=== PATIENT | female | born 1955 | race Caucasian/White ===

== ENCOUNTER 2016-08-30 11:02 | Observation (INO) | payer MEDICARE, OTHER ==
[2016-08-30] MEDS ORDERED: SODIUM CHLORIDE 0.9% 1,000 ML IV STA (11:29)
[2016-08-30 11:39] LABS: Basophils # (A) 0.1 k/uL (0-0.2); Basophils % (A) 1 %; CH 29.9; CHCM 33.6; Eosinophils # (A) 0.1 k/uL (0-0.7); Eosinophils % (A) 2 %; HCT 33.3 % (34.0-46.0); HDW 2.79; Luc % (Auto) 2; Lymphocytes # (A) 0.8 k/uL (1.0-4.8); Lymphocytes % (A) 18 %; MCH 29.6 pg (25.0-35.0); MCHC 33.1 g/dL (31.0-37.0); MCV 89.4 fL (80.0-100.0); Mean Platelet Volume 7.2; Monocytes # (A) 0.3 k/uL (0-1.0); Monocytes % (A) 6 %; Neutrophils # (A) 3.2 k/uL (1.3-7.7); Neutrophils % (A) 71 %; RBC 3.73 m/uL (3.80-5.40); RDW 14.8 % (11.5-15.5); WBC 4.5 k/uL (3.8-10.6); WBC (Perox) 4.04
[2016-08-30 11:53] LABS: ALT 32 U/L (9-52); AST 22 U/L (14-36); Alkaline Phosphatase 111 U/L (38-126); Anion Gap 8 mmol/L; Blood Urea Nitrogen 17 mg/dL (7-17); Calcium 9.2 mg/dL (8.4-10.2); Carbon Dioxide 25 mmol/L (22-30); Chloride 107 mmol/L (98-107); Glucose 91 mg/dL (74-99); Magnesium 1.9 mg/dL (1.6-2.3); Non-African American GFR(MDRD) 51 (>60 ml/min/1.73 sqM); Potassium 4.5 mmol/L (3.5-5.1); Sodium 140 mmol/L (137-145); Total Bilirubin 0.3 mg/dL (0.2-1.3)
--- NOTE | 2016-08-30 11:54 | ED ---
GI Bleed HPI - General Chief complaint: GI Bleed Stated complaint: GI Bleed Time Seen by Provider: 08/30/16 11:28 Source: EMS, RN notes reviewed Mode of arrival: EMS Limitations: altered mental status - History of Present Illness Initial comments: Patient is a 61-year-old female presents to the emergency room for evaluation. Patient has a history of dementia and currently resides at [facility]. Patient' s brother/caregiver is present with patient. Patient's brother states he received a phone call that she had a dime-sized amount of bright red blood in her stools today. Patient has a history of anemia. Patient denies lightheadedness or dizziness. Patient denies chest pain or shortness of breath. Patient denies rectal pain. Patient denies headache or dizziness. Patient has abdominal pain. Patient denies nausea or vomiting. Patient's caregiver states that they are Jehovah witnesses. - Related Data Home Medications Medication Instructions Recorded Confirmed Omeprazole [PriLOSEC] 20 mg PO Q48H 09/04/13 08/30/16 carBAMazepine [Carbatrol] 200 mg PO DAILY@0900 09/04/13 08/30/16 Cholecalciferol [Vitamin D3] 3,000 unit PO DAILY 09/27/15 08/30/16 Lacosamide [Vimpat] 200 mg PO DAILY 09/27/15 08/30/16 Rivastigmine 4.6MG/24Hr Patch 1 patch TRANSDERM DAILY 09/27/15 08/30/16 [Exelon 4.6MG/24Hr Patch] Calcium Carbonate [Tums] 1,000 mg PO Q4H PRN 10/14/15 08/30/16 Cyanocobalamin [Vitamin B-12] 1,000 mcg PO DAILY 10/14/15 08/30/16 Vitamin B Complex 1 cap PO DAILY 10/14/15 08/30/16 carBAMazepine [Carbatrol] 400 mg PO HS 10/14/15 08/30/16 Atorvastatin [Lipitor] 40 mg PO HS 10/30/15 08/30/16 Bismuth Subsalicylate 524 mg PO Q6H PRN 10/30/15 08/30/16 [Pepto-Bismol] Ibuprofen [Motrin] 200 mg PO Q8H PRN 08/30/16 08/30/16 Sennosides-Docusate Sodium 1 tab PO HS 08/30/16 08/30/16 [Senokot-S] Previous Rx's Medication Instructions Recorded Aspirin 81 mg PO DAILY chew 10/17/15 HYDROcodone/APAP 10-325MG [[place] 1 tab PO Q6H PRN #20 tab 10/17/15 10-325] Allergies Allergy/AdvReac Type Severity Reaction Status Date / Time midazolam HCl [From Versed] Allergy Unknown Verified 08/30/16 11:19 phenytoin sodium Allergy Unknown Verified 08/30/16 11:19 [From Dilantin] phenytoin sodium extended Allergy Unknown Verified 08/30/16 11:19 [From Dilantin] strawberry Allergy Rash/Hives Verified 08/30/16 11:19 Review of Systems ROS Statement: Those systems with pertinent positive or pertinent negative responses have been documented in the HPI. ROS Other: All systems not noted in ROS Statement are negative. Past Medical History Past Medical History: CVA/TIA, Dementia, Hyperlipidemia, Hypertension, Seizure Disorder, Skin Disorder Additional Past Medical History / Comment(s): anemia, lymphoma, brain tumor History of Any Multi-Drug Resistant Organisms: None Reported Additional Past Surgical History / Comment(s): brain surgery Past Anesthesia/Blood Transfusion Reactions: No Reported Reaction Past Psychological History: No Psychological Hx Reported Smoking Status: Former smoker Past Alcohol Use History: None Reported Past Drug Use History: None Reported - Past Family History Father Family Medical History: Coronary Artery Disease (CAD) Mother Family Medical History: Coronary Artery Disease (CAD) General Exam - General Exam Comments Initial Comments: Laying in exam room, no acute distress Limitations: altered mental status General appearance: alert, in no apparent distress Head exam: Present: atraumatic, normocephalic, normal inspection Eye exam: Present: normal appearance ENT exam: Present: normal exam Neck exam: Present: normal inspection Respiratory exam: Present: normal lung sounds bilaterally. Absent: respiratory distress Cardiovascular Exam: Present: regular rate, normal rhythm, normal heart sounds GI/Abdominal exam: Present: soft, normal bowel sounds. Absent: distended, tenderness, guarding, rebound, rigid Rectal exam: Present: normal rectal tone, heme (+) stool Extremities exam: Present: normal inspection Back exam: Present: normal inspection Neurological exam: Present: alert, CN II-XII intact Psychiatric exam: Present: normal affect Skin exam: Present: warm, dry, intact, normal color. Absent: rash Course Vital Signs 08/30/16 08/30/16 11:10 13:59 Temperature 97.9 F 97.0 F L Pulse Rate 62 60 Respiratory 18 18 Rate Blood Pressure 112/72 108/72 O2 Sat by Pulse 100 96 Oximetry Medical Decision Making - Medical Decision Making patient is a 61-year-old female presents to the emergency room for evaluation of hematochezia. Hemoglobin is stable. Fecal occult positive. Patient will be admitted for further evaluation of hematochezia. Case discussed with Dr. Hess. Dr. Hess discussed case with Dr. Serrato who agreed to admit patient. - Lab Data Result diagrams: 08/30/16 11:28 08/30/16 11:28 Lab Results 08/30/16 08/30/16 08/30/16 Range/Units 11:28 11:28 11:28 WBC 4.5 (3.8-10.6) k/uL RBC 3.73 L (3.80-5.40) m/uL Hgb 11.0 L (11.4-16.0) gm/dL Hct 33.3 L (34.0-46.0) % MCV 89.4 (80.0-100.0) fL MCH 29.6 (25.0-35.0) pg MCHC 33.1 (31.0-37.0) g/dL RDW 14.8 (11.5-15.5) % Plt Count 255 (150-450) k/uL Neutrophils % 71 % Lymphocytes % 18 % Monocytes % 6 % Eosinophils % 2 % Basophils % 1 % Neutrophils # 3.2 (1.3-7.7) k/uL Lymphocytes # 0.8 L (1.0-4.8) k/uL Monocytes # 0.3 (0-1.0) k/uL Eosinophils # 0.1 (0-0.7) k/uL Basophils # 0.1 (0-0.2) k/uL PT (9.0-12.0) sec INR (<1.2) APTT (22.0-30.0) sec Sodium 140 (137-145) mmol/L Potassium 4.5 (3.5-5.1) mmol/L Chloride 107 (98-107) mmol/L Carbon Dioxide 25 (22-30) mmol/L Anion Gap 8 mmol/L BUN 17 (7-17) mg/dL Creatinine 1.09 H (0.52-1.04) mg/dL Est GFR (MDRD) Af Amer >60 (>60 ml/min/1.73 sqM) Est GFR (MDRD) Non-Af 51 (>60 ml/min/1.73 sqM) Glucose 91 (74-99) mg/dL Calcium 9.2 (8.4-10.2) mg/dL Magnesium 1.9 (1.6-2.3) mg/dL Total Bilirubin 0.3 (0.2-1.3) mg/dL AST 22 (14-36) U/L ALT 32 (9-52) U/L Alkaline Phosphatase 111 (38-126) U/L Total Creatine Kinase 24 L (30-135) U/L CK-MB (CK-2) 0.2 (0.0-2.4) ng/mL CK-MB (CK-2) Rel Index 0.8 Troponin I <0.012 (0.000-0.034) ng/mL Total Protein 11.1 H (6.3-8.2) g/dL Albumin 3.7 (3.5-5.0) g/dL Lipase 396 H (23-300) U/L Stool Occult Blood (Negative) Blood Type Blood Type Confirm Blood Type Recheck Antibody Screen Spec Expiration Date 08/30/16 08/30/16 08/30/16 Range/Units 11:28 11:28 11:45 WBC (3.8-10.6) k/uL RBC (3.80-5.40) m/uL Hgb (11.4-16.0) gm/dL Hct (34.0-46.0) % MCV (80.0-100.0) fL MCH (25.0-35.0) pg MCHC (31.0-37.0) g/dL RDW (11.5-15.5) % Plt Count (150-450) k/uL Neutrophils % % Lymphocytes % % Monocytes % % Eosinophils % % Basophils % % Neutrophils # (1.3-7.7) k/uL Lymphocytes # (1.0-4.8) k/uL Monocytes # (0-1.0) k/uL Eosinophils # (0-0.7) k/uL Basophils # (0-0.2) k/uL PT 11.0 (9.0-12.0) sec INR 1.1 (<1.2) APTT 20.5 L (22.0-30.0) sec Sodium (137-145) mmol/L Potassium (3.5-5.1) mmol/L Chloride (98-107) mmol/L Carbon Dioxide (22-30) mmol/L Anion Gap mmol/L BUN (7-17) mg/dL Creatinine (0.52-1.04) mg/dL Est GFR (MDRD) Af Amer (>60 ml/min/1.73 sqM) Est GFR (MDRD) Non-Af (>60 ml/min/1.73 sqM) Glucose (74-99) mg/dL Calcium (8.4-10.2) mg/dL Magnesium (1.6-2.3) mg/dL Total Bilirubin (0.2-1.3) mg/dL AST (14-36) U/L ALT (9-52) U/L Alkaline Phosphatase (38-126) U/L Total Creatine Kinase (30-135) U/L CK-MB (CK-2) (0.0-2.4) ng/mL CK-MB (CK-2) Rel Index Troponin I (0.000-0.034) ng/mL Total Protein (6.3-8.2) g/dL Albumin (3.5-5.0) g/dL Lipase (23-300) U/L Stool Occult Blood Positive H (Negative) Blood Type AB Positive Blood Type Confirm Blood Type Recheck CABO Indicated Antibody Screen NEGATIVE Spec Expiration Date 09/02/2016232708/30/16 Range/Units 12:20 WBC (3.8-10.6) k/uL RBC (3.80-5.40) m/uL Hgb (11.4-16.0) gm/dL Hct (34.0-46.0) % MCV (80.0-100.0) fL MCH (25.0-35.0) pg MCHC (31.0-37.0) g/dL RDW (11.5-15.5) % Plt Count (150-450) k/uL Neutrophils % % Lymphocytes % % Monocytes % % Eosinophils % % Basophils % % Neutrophils # (1.3-7.7) k/uL Lymphocytes # (1.0-4.8) k/uL Monocytes # (0-1.0) k/uL Eosinophils # (0-0.7) k/uL Basophils # (0-0.2) k/uL PT (9.0-12.0) sec INR (<1.2) APTT (22.0-30.0) sec Sodium (137-145) mmol/L Potassium (3.5-5.1) mmol/L Chloride (98-107) mmol/L Carbon Dioxide (22-30) mmol/L Anion Gap mmol/L BUN (7-17) mg/dL Creatinine (0.52-1.04) mg/dL Est GFR (MDRD) Af Amer (>60 ml/min/1.73 sqM) Est GFR (MDRD) Non-Af (>60 ml/min/1.73 sqM) Glucose (74-99) mg/dL Calcium (8.4-10.2) mg/dL Magnesium (1.6-2.3) mg/dL Total Bilirubin (0.2-1.3) mg/dL AST (14-36) U/L ALT (9-52) U/L Alkaline Phosphatase (38-126) U/L Total Creatine Kinase (30-135) U/L CK-MB (CK-2) (0.0-2.4) ng/mL CK-MB (CK-2) Rel Index Troponin I (0.000-0.034) ng/mL Total Protein (6.3-8.2) g/dL Albumin (3.5-5.0) g/dL Lipase (23-300) U/L Stool Occult Blood (Negative) Blood Type Blood Type Confirm AB Positive Blood Type Recheck Antibody Screen Spec Expiration Date Disposition Clinical Impression: Hematochezia Disposition: ADMITTED IP TO THIS [facility] Condition: Stable Decision Date: 08/30/16
[2016-08-30 11:59] LABS: INR 1.1 (<1.2)
[2016-08-30 12:01] LABS: Total Protein 11.1 g/dL (6.3-8.2)
[2016-08-30 12:03] LABS: Creatine Kinase 24 U/L (30-135)
[2016-08-30 12:05] LABS: Partial Thromboplastin Time 20.5 sec (22.0-30.0)
[2016-08-30 12:16] LABS: Creatine Kinase MB 0.2 ng/mL (0.0-2.4); Troponin I <0.012 ng/mL (0.000-0.034)
[2016-08-30] MEDS ORDERED: ONDANSETRON 4 MG/2 ML VIAL IVP PRN (13:45)
[2016-08-30] MEDS ORDERED: NALOXONE 0.4 MG/ML 1 ML VIAL IV PRN (13:45)
[2016-08-30] MEDS ORDERED: MORPHINE SULFATE 4 MG/ML SYRINGE IV PRN (13:45)
[2016-08-30] MEDS: SODIUM CHLORIDE 0.9% 1,000 ML IV SCH (14:05)
[2016-08-30] MEDS ORDERED: SENNOSIDES-DOCUSATE SODIUM 1 EACH TAB PO PRN (15:46)
[2016-08-30] MEDS ORDERED: BISMUTH SUBSALICYLATE 4,192 MG/240 ML BOTTLE PO PRN (15:46)
[2016-08-30] MEDS ORDERED: HYDROcodone/APAP 10-325MG 1 EACH TAB PO PRN (15:46)
--- NOTE | 2016-08-30 16:10 | P.HPIM ---
History of Present Illness Patient is a 61-year-old female presents to the emergency room for a possible lower GI bleed. Patient has a history of vascular accident with left-sided residual weakness and currently resides at [facility] patient is alert oriented 3 but has history of dementia as per the chart and patient is a Rivastigmine for that. Patient had a dime-sized amount of bright red blood in her stools today, rectal exam was done in ER because of which I didn't repeat the rectal exam here. Although there is no mention about hemorrhoids. Patient denied any abdominal pain denied any hematemesis then nausea vomiting or any fevers. Patient has a history of anemia. Patient denies lightheadedness or dizziness. Patient denies chest pain or shortness of breath. Patient denies rectal pain. Patient denies headache or dizziness. Review of Systems REVIEW OF SYSTEMS: CONSTITUTIONAL: No fever, no malaise, no fatigue. HEENT: No recent visual problems or hearing problems. Denied any sore throat. CARDIOVASCULAR: No chest pain, orthopnea, PND, no palpitations, no syncope. PULMONARY: No shortness of breath, no cough, no hemoptysis. GASTROINTESTINAL: No diarrhea, no nausea, no vomiting, no abdominal pain. Normoactive bowel sounds. NEUROLOGICAL: No headaches, no weakness, no numbness. HEMATOLOGICAL: Denies any bleeding or petechiae. GENITOURINARY: Denies any burning micturition, frequency, or urgency. MUSCULOSKELETAL/RHEUMATOLOGICAL: Denies any joint pain, swelling, or any muscle pain. ENDOCRINE: Denies any polyuria or polydipsia. The rest of the 14-point review of systems is negative. Past Medical History Past Medical History: CVA/TIA, Dementia, Hyperlipidemia, Hypertension, Seizure Disorder, Skin Disorder Additional Past Medical History / Comment(s): Nonhodgkins lymphoma stage IV, brain tumor with surgery/radiation/chemo, last seizure 2000, CVA with L sided weakness, slight dysphagia, pt needs to take carbetrol-if tegretol is substituted she gets extremely lethargic, hypogamaglobulinemia, normocytic anemia. History of Any Multi-Drug Resistant Organisms: None Reported Additional Past Surgical History / Comment(s): brain surgery, SABINE Past Anesthesia/Blood Transfusion Reactions: No Reported Reaction Smoking Status: Former smoker - Past Family History Father Family Medical History: Coronary Artery Disease (CAD) Mother Family Medical History: Coronary Artery Disease (CAD) Medications and Allergies Home Medications Medication Instructions Recorded Confirmed Type Omeprazole [PriLOSEC] 20 mg PO Q48H 09/04/13 08/30/16 History carBAMazepine [Carbatrol] 200 mg PO DAILY@0900 09/04/13 08/30/16 History Cholecalciferol [Vitamin D3] 3,000 unit PO DAILY 09/27/15 08/30/16 History Lacosamide [Vimpat] 200 mg PO DAILY 09/27/15 08/30/16 History Rivastigmine 4.6MG/24Hr Patch 1 patch TRANSDERM DAILY 09/27/15 08/30/16 History [Exelon 4.6MG/24Hr Patch] Calcium Carbonate [Tums] 1,000 mg PO Q4H PRN 10/14/15 08/30/16 History Cyanocobalamin [Vitamin B-12] 1,000 mcg PO DAILY 10/14/15 08/30/16 History Vitamin B Complex 1 cap PO DAILY 10/14/15 08/30/16 History carBAMazepine [Carbatrol] 400 mg PO HS 10/14/15 08/30/16 History Atorvastatin [Lipitor] 40 mg PO HS 10/30/15 08/30/16 History Bismuth Subsalicylate 524 mg PO Q6H PRN 10/30/15 08/30/16 History [Pepto-Bismol] Ibuprofen [Motrin] 200 mg PO Q8H PRN 08/30/16 08/30/16 History Sennosides-Docusate Sodium 1 tab PO HS 08/30/16 08/30/16 History [Senokot-S] Allergies Allergy/AdvReac Type Severity Reaction Status Date / Time midazolam HCl [From Versed] Allergy Unknown Verified 08/30/16 11:19 phenytoin sodium Allergy Unknown Verified 08/30/16 11:19 [From Dilantin] phenytoin sodium extended Allergy Unknown Verified 08/30/16 11:19 [From Dilantin] strawberry Allergy Rash/Hives Verified 08/30/16 11:19 Physical Exam Vitals: Vital Signs Temp Pulse Pulse Resp BP BP Pulse Ox 08/30/16 14:54 97.4 F L 59 L 20 118/66 97 08/30/16 13:59 97.0 F L 60 18 108/72 96 08/30/16 11:10 97.9 F 62 18 112/72 100 Intake and Output 08/30/16 08/30/16 08/30/16 06:59 14:59 22:59 Intake Total 1000 Balance 1000 Intake: Amount of Fluid Infused ( 1000 ml) Other: Weight 51.256 kg Patient Weight 08/31/16 06:59 Weight 51.256 kg PHYSICAL EXAMINATION: GENERAL: The patient is alert and oriented x3, not in any acute distress. Well developed, well nourished. HEENT: Pupils are round and equally reacting to light. EOMI. No scleral icterus. No conjunctival pallor. Normocephalic, atraumatic. No pharyngeal erythema. No thyromegaly. CARDIOVASCULAR: S1 and S2 present. No murmurs, rubs, or gallops. PULMONARY: Chest is clear to auscultation, no wheezing or crackles. ABDOMEN: Soft, nontender, nondistended, normoactive bowel sounds. No palpable organomegaly. MUSCULOSKELETAL: No joint swelling or deformity. EXTREMITIES: No cyanosis, clubbing, or pedal edema. NEUROLOGICAL: She does have residual weakness in the left side of the body. SKIN: No rashes. Results CBC & Chem 7: 08/30/16 11:28 08/30/16 11:28 Labs: Abnormal Lab Results - Last 24 Hours (Table) 08/30/16 08/30/16 08/30/16 Range/Units 11:28 11:28 11:28 RBC 3.73 L (3.80-5.40) m/uL Hgb 11.0 L (11.4-16.0) gm/dL Hct 33.3 L (34.0-46.0) % Lymphocytes # 0.8 L (1.0-4.8) k/uL APTT (22.0-30.0) sec Creatinine 1.09 H (0.52-1.04) mg/dL Total Creatine Kinase 24 L (30-135) U/L Total Protein 11.1 H (6.3-8.2) g/dL Lipase 396 H (23-300) U/L Stool Occult Blood (Negative) 08/30/16 08/30/16 Range/Units 11:28 11:45 RBC (3.80-5.40) m/uL Hgb (11.4-16.0) gm/dL Hct (34.0-46.0) % Lymphocytes # (1.0-4.8) k/uL APTT 20.5 L (22.0-30.0) sec Creatinine (0.52-1.04) mg/dL Total Creatine Kinase (30-135) U/L Total Protein (6.3-8.2) g/dL Lipase (23-300) U/L Stool Occult Blood Positive H (Negative) Thrombosis Risk Factor Assmnt - Choose All That Apply Any of the Below Risk Factors Present?: Yes Each Factor Represents 1 point: Age 41-60 years Other Risk Factors: Yes Each Risk Factor Represents 2 Points: Malignancy Other congenital or acquired thrombophilia - If yes, enter type in comment: No Thrombosis Risk Factor Assessment Total Risk Factor Score: 3 Thrombosis Risk Factor Assessment Level: Moderate Risk Assessment and Plan Plan: #1 lower GI bleed: Possibly of hemorrhoids are diverticulosis patient will be monitored for any further GI bleed. Gastric body was consulted. Repeat CBC tomorrow. If patient doesn't have any further GI bleed patient probably can be discharged and colonoscopy that can be done as an outpatient. #2 cerebrovascular accident with residual weakness on the left side, has speech is also slow because of the cerebral vascular accident. Aspirin is being held temporarily for possibility of GI bleed as mentioned above. #3 seizure disorder #4 hyperlipidemia
[2016-08-30 19:42] VITALS: BMI 19.3
[2016-08-30] MEDS ORDERED: ATORVASTATIN 40 MG TAB PO SCH (21:00)
[2016-08-30] MEDS ORDERED: CARBAMAZEPINE 200 MG PO SCH (21:00)
[2016-08-31] MEDS: SODIUM CHLORIDE 0.9% 1,000 ML IV SCH ×2 (00:04→10:41)
[2016-08-31 08:31] LABS: Basophils % (A) 1 %; CH 29.8; CHCM 32.8; Eosinophils % (A) 1 %; HCT 28.7 % (34.0-46.0); HDW 2.76; Luc # (Auto) 0.05; Luc % (Auto) 2; Lymphocytes # (A) 0.7 k/uL (1.0-4.8); Lymphocytes % (A) 22 %; MCHC 32.9 g/dL (31.0-37.0); MCV 91.2 fL (80.0-100.0); Mean Platelet Volume 6.9; Monocytes # (A) 0.3 k/uL (0-1.0); Monocytes % (A) 9 %; Neutrophils # (A) 1.9 k/uL (1.3-7.7); Neutrophils % (A) 64 %; RBC 3.14 m/uL (3.80-5.40); RDW 14.9 % (11.5-15.5); WBC 2.9 k/uL (3.8-10.6); WBC (Perox) 2.83
[2016-08-31 08:35] LABS: HGB 9.4 gm/dL (11.4-16.0)
[2016-08-31 08:37] LABS: ALT 19 U/L (9-52); AST 18 U/L (14-36); Alkaline Phosphatase 102 U/L (38-126); Anion Gap 5 mmol/L; Blood Urea Nitrogen 12 mg/dL (7-17); Calcium 8.4 mg/dL (8.4-10.2); Carbon Dioxide 22 mmol/L (22-30); Chloride 114 mmol/L (98-107); Glucose 82 mg/dL (74-99); Non-African American GFR(MDRD) 52 (>60 ml/min/1.73 sqM); Potassium 3.9 mmol/L (3.5-5.1); Sodium 141 mmol/L (137-145); Total Bilirubin 0.2 mg/dL (0.2-1.3); Total Protein 9.3 g/dL (6.3-8.2)
[2016-08-31] MEDS ORDERED: CARBAMAZEPINE 200 MG PO SCH (09:00)
[2016-08-31] MEDS ORDERED: RIVASTIGMINE 4.6MG/24HR PATCH TRANSDERM SCH (09:00)
[2016-08-31] MEDS ORDERED: LACOSAMIDE 50 MG TABLET PO SCH (09:00)
[2016-08-31] MEDS ORDERED: PANTOPRAZOLE 40 MG TABLET PO SCH (09:00)
--- NOTE | 2016-08-31 10:13 | P.CONS ---
History of Present Illness - Reason for Consult Consult date: 08/31/16 Rectal bleeding Requesting physician: Khai Oliveros - History of Present Illness 61-year-old female with a history of dementia, stage IV non-Hodgkin's lymphoma diagnosed early 1999 with bone and leptomeningeal involvement status post chemoradiation presents with 1 time episode of small amount of red blood in her bowel movement at [facility] prior to admission. No recurrence of bleeding since admission. Patient's brother is her POA. Bowel movement this morning brown in nature. Denies abdominal pain. Tolerating regular diet. Consultation requested for rectal bleeding GI bleed. She has a history of known anemia baseline between 9-11. Admission hemoglobin 11 presently 9.4. INR 1.1. BUN 17. Creatinine 1.0. History of remote colonoscopy several years ago no EGD. Review of Systems Additional history obtained from patient's brother and nursing staff medical records Constitutional: Denies fever, chills, sweats, weight gain, or loss. History of dementia HEENT: Negative for migraines, blurred vision or loss, earaches, drainage, tinnitus, oral mucosal lesions, dysphagia, or odynophagia. CARDIAC: Retention. Hyperlipidemia. Negative for chest pain, arrhythmias, or palpitation. RESPIRATORY: Negative for shortness of breath, hemoptysis, cough, or sputum production. GI: See HPI for pertinent findings. : Negative for hematuria, urgency, frequency, polyuria, or dysuria. GYNc: Denies possibility of . Negative vaginal discharge. MUSCULOSKELETAL: Negative for muscle aches, swelling, arthritis, and arthralgias. NEUROLOGIC: CVA/TIA. Seizure disorder. ENDOCRINE: Negative for thyroid problems. SKIN: Negative for rash or itching. PSYCHIATRIC: Negative history for depression and anxiety Oncology: Stage IV non-Hodgkin's lymphoma. History of anemia. All systems: negative (See HPI) Past Medical History Past Medical History: CVA/TIA, Dementia, Hyperlipidemia, Hypertension, Seizure Disorder, Skin Disorder Additional Past Medical History / Comment(s): anemia, lymphoma, brain tumor History of Any Multi-Drug Resistant Organisms: None Reported Additional Past Surgical History / Comment(s): brain surgery Past Anesthesia/Blood Transfusion Reactions: No Reported Reaction Past Psychological History: No Psychological Hx Reported Smoking Status: Former smoker Past Alcohol Use History: None Reported Past Drug Use History: None Reported - Past Family History Father Family Medical History: Coronary Artery Disease (CAD) Mother Family Medical History: Coronary Artery Disease (CAD) Medications and Allergies Home Medications Medication Instructions Recorded Confirmed Type Omeprazole [PriLOSEC] 20 mg PO Q48H 09/04/13 08/30/16 History carBAMazepine [Carbatrol] 200 mg PO DAILY@0900 09/04/13 08/30/16 History Cholecalciferol [Vitamin D3] 3,000 unit PO DAILY 09/27/15 08/30/16 History Lacosamide [Vimpat] 200 mg PO DAILY 09/27/15 08/30/16 History Rivastigmine 4.6MG/24Hr Patch 1 patch TRANSDERM DAILY 09/27/15 08/30/16 History [Exelon 4.6MG/24Hr Patch] Calcium Carbonate [Tums] 1,000 mg PO Q4H PRN 10/14/15 08/30/16 History Cyanocobalamin [Vitamin B-12] 1,000 mcg PO DAILY 10/14/15 08/30/16 History Vitamin B Complex 1 cap PO DAILY 10/14/15 08/30/16 History carBAMazepine [Carbatrol] 400 mg PO HS 10/14/15 08/30/16 History Atorvastatin [Lipitor] 40 mg PO HS 10/30/15 08/30/16 History Bismuth Subsalicylate 524 mg PO Q6H PRN 10/30/15 08/30/16 History [Pepto-Bismol] Ibuprofen [Motrin] 200 mg PO Q8H PRN 08/30/16 08/30/16 History Sennosides-Docusate Sodium 1 tab PO HS 08/30/16 08/30/16 History [Senokot-S] Allergies Allergy/AdvReac Type Severity Reaction Status Date / Time midazolam HCl [From Versed] Allergy Unknown Verified 08/30/16 11:19 phenytoin sodium Allergy Unknown Verified 08/30/16 11:19 [From Dilantin] phenytoin sodium extended Allergy Unknown Verified 08/30/16 11:19 [From Dilantin] strawberry Allergy Rash/Hives Verified 08/30/16 11:19 Physical Exam Vitals: Vital Signs Temp Pulse Pulse Resp BP BP Pulse Ox 08/31/16 07:00 97.4 F L 95 16 123/74 98 08/30/16 23:00 97.9 F 62 16 96/62 96 08/30/16 14:54 97.4 F L 59 L 20 118/66 97 08/30/16 13:59 97.0 F L 60 18 108/72 96 08/30/16 11:10 97.9 F 62 18 112/72 100 Intake and Output 08/30/16 08/31/16 08/31/16 22:59 06:59 14:59 Other: Voiding Method Incontinent # Voids 1 2 # Bowel Movements 1 Weight 51.256 kg General appearance: The patient is alert, oriented, in no acute distress. HET: Head is normocephalic and atraumatic. Pupils are equal and reactive. Oropharynx is clear without lesions. Hair distribution thin sparse. Neck: Supple without lymphadenopathy. Trachea midline. Heart: S1 S2. Regular rate and rhythm. Lungs: No crackles or wheezes are heard. Abdomen: Soft, nontender, nondistended with bowel sounds. No peritoneal signs. No palpable organomegaly or masses. Extremities: Normal skin color and turgor. No cyanosis, rash, ulceration, clubbing, or edema. Radial and pedal pulses are 2/4 bilaterally. Neurological: No focal deficits. Strength and sensation are grossly intact. Rectal: No Blood. No palpable masses. Results CBC & Chem 7: 08/31/16 07:45 08/31/16 07:45 Labs: Abnormal Lab Results - Last 24 Hours (Table) 08/30/16 08/30/16 08/30/16 Range/Units 11:28 11:28 11:28 WBC (3.8-10.6) k/uL RBC 3.73 L (3.80-5.40) m/uL Hgb 11.0 L (11.4-16.0) gm/dL Hct 33.3 L (34.0-46.0) % Lymphocytes # 0.8 L (1.0-4.8) k/uL APTT (22.0-30.0) sec Creatinine 1.09 H (0.52-1.04) mg/dL Total Creatine Kinase 24 L (30-135) U/L Total Protein 11.1 H (6.3-8.2) g/dL Lipase 396 H (23-300) U/L Stool Occult Blood (Negative) 08/30/16 08/30/16 08/31/16 Range/Units 11:28 11:45 07:45 WBC 2.9 L (3.8-10.6) k/uL RBC 3.14 L (3.80-5.40) m/uL Hgb 9.4 L D (11.4-16.0) gm/dL Hct 28.7 L (34.0-46.0) % Lymphocytes # 0.7 L (1.0-4.8) k/uL APTT 20.5 L (22.0-30.0) sec Creatinine (0.52-1.04) mg/dL Total Creatine Kinase (30-135) U/L Total Protein (6.3-8.2) g/dL Lipase (23-300) U/L Stool Occult Blood Positive H (Negative) Assessment and Plan (1) Rectal bleeding Narrative/Plan: 61-year-old female for history of dementia stage IV non-Hodgkin's lymphoma presents with acute on chronic anemia and isolated episode of painless rectal bleeding 1 without recurrence. Possible perirectal in nature possible diverticular. Etiology is unclear at this time. Status: Acute (2) Anemia Narrative/Plan: Possible component of acute blood loss Status: Chronic Plan: 1. Phone conversation was held with patient's brother Cam Joy. Colonoscopy was discussed however patient is refusing to drink bowel prep and brother agrees she will not drink the prep also requesting conservative measures for the time being. DC to ECF with repeat CBC in 3-5 days. If patient has recurrence of rectal bleeding or precipitous drop in hemoglobin would recommend endoscopic evaluation. Follow up in GI office in 2-3 weeks for reevaluation. Thank you for this kind referral and the opportunity to participate in the care of your patient. This consultation was discussed with Dr. Allen. The impression and plan of care have been directed as dictated.
[2016-08-31] MEDS ORDERED: B COMPLEX-VIT C-VIT E-ZINC 1 EACH TAB PO SCH (12:00)
[2016-08-31 15:13] VITALS: BP 97/61; PULSE 68; RESP 17; TEMP 97.8
--- NOTE | 2016-08-31 15:44 | P.DS ---
Providers Date of admission: 08/30/16 13:48 Attending physician: Alva Serrato Primary care physician: [facility] Course: She is admitted for painless rectal bleeding which was self-limited. Patient was ordered with gastroenterology and the her medical power of research attorney declined any further colonoscopy. Patient is being discharged back to subacute longterm she does have left-sided stroke along with possible vascular dementia. #1 lower GI bleed: Possibly of hemorrhoids are diverticulosis patient will be monitored for any further GI bleed. #2 cerebrovascular accident with residual weakness on the left side, has speech is also slow because of the cerebral vascular accident. Aspirin can be resumed #3 seizure disorder #4 hyperlipidemia Patient Condition at Discharge: Stable Plan - Discharge Summary New Discharge Prescriptions: No Action carBAMazepine [Carbatrol] 200 mg PO DAILY@0900 Omeprazole [PriLOSEC] 20 mg PO Q48H Cholecalciferol [Vitamin D3] 3,000 unit PO DAILY Rivastigmine 4.6MG/24Hr Patch [Exelon 4.6MG/24Hr Patch] 1 patch TRANSDERM DAILY Lacosamide [Vimpat] 200 mg PO DAILY Vitamin B Complex 1 cap PO DAILY Cyanocobalamin [Vitamin B-12] 1,000 mcg PO DAILY Calcium Carbonate [Tums] 1,000 mg PO Q4H PRN PRN Reason: gerd carBAMazepine [Carbatrol] 400 mg PO HS Aspirin 81 mg PO DAILY chew HYDROcodone/APAP 10-325MG [Kenney 10-325] 1 tab PO Q6H PRN #20 tab PRN Reason: Pain Atorvastatin [Lipitor] 40 mg PO HS Bismuth Subsalicylate [Pepto-Bismol] 524 mg PO Q6H PRN PRN Reason: Nausea And Vomiting Ibuprofen [Motrin] 200 mg PO Q8H PRN PRN Reason: Pain Sennosides-Docusate Sodium [Senokot-S] 1 tab PO HS Discharge Medication List Omeprazole [PriLOSEC] 20 mg PO Q48H 09/04/13 [History] carBAMazepine [Carbatrol] 200 mg PO DAILY@0900 09/04/13 [History] Cholecalciferol [Vitamin D3] 3,000 unit PO DAILY 09/27/15 [History] Lacosamide [Vimpat] 200 mg PO DAILY 09/27/15 [History] Rivastigmine 4.6MG/24Hr Patch [Exelon 4.6MG/24Hr Patch] 1 patch TRANSDERM DAILY 09/27/15 [History] Calcium Carbonate [Tums] 1,000 mg PO Q4H PRN 10/14/15 [History] Cyanocobalamin [Vitamin B-12] 1,000 mcg PO DAILY 10/14/15 [History] Vitamin B Complex 1 cap PO DAILY 10/14/15 [History] carBAMazepine [Carbatrol] 400 mg PO HS 10/14/15 [History] Aspirin 81 mg PO DAILY chew 10/17/15 [Rx] HYDROcodone/APAP 10-325MG [Ken[place] 10-325] 1 tab PO Q6H PRN #20 tab 10/17/15 [Rx] Atorvastatin [Lipitor] 40 mg PO HS 10/30/15 [History] Bismuth Subsalicylate [Pepto-Bismol] 524 mg PO Q6H PRN 10/30/15 [History] Ibuprofen [Motrin] 200 mg PO Q8H PRN 08/30/16 [History] Sennosides-Docusate Sodium [Senokot-S] 1 tab PO HS 08/30/16 [History] Follow up Appointment(s)/Referral(s): Sukhi Iraheta DO [Primary Care Provider] - 3 Days Apurva Allen MD [STAFF PHYSICIAN] - 09/15/16 4:00 pm Discharge Disposition: TRANSFER TO SNF/ECF
== END 2016-08-31 15:50 ==
LOC: EC 11:02 → 4MS4W 13:48
PROVIDERS: ADMIT Internal Medicine; ATTEND Internal Medicine
DX: K92.2 Gastrointestinal hemorrhage, unspecified (principal); I69.354 Hemiplegia and hemiparesis following cerebral infarction affecting left non-dominant side; G40.909 Epilepsy, unspecified, not intractable, without status epilepticus; E78.5 Hyperlipidemia, unspecified; I69.322 Dysarthria following cerebral infarction; D64.9 Anemia, unspecified; I10 Essential (primary) hypertension; F03.90 Unspecified dementia, unspecified severity, without behavioral disturbance, psychotic disturbance, mood disturbance, and anxiety; Z79.899 Other long term (current) drug therapy; Z79.82 Long term (current) use of aspirin; Z88.4 Allergy status to anesthetic agent; Z88.8 Allergy status to other drugs, medicaments and biological substances; Z91.018 Allergy to other foods; Z85.72 Personal history of non-Hodgkin lymphomas; Z87.891 Personal history of nicotine dependence; Z82.49 Family history of ischemic heart disease and other diseases of the circulatory system; Z92.21 Personal history of antineoplastic chemotherapy; Z92.3 Personal history of irradiation; Z86.03 Personal history of neoplasm of uncertain behavior
CPT/HCPCS: 96360 ×2; 96361 ×2; 99285 ×2; 36415; 86900; 86901; 80053 ×2; 82550; 82553; 83690; 83735; 84484; 85025 ×2; 85610; 85730; 86850; 82272; G0378 ×2